=== PATIENT | male | born 1965 | race Hispanic/Latino ===

== ENCOUNTER → 2020-04-18 | Outpatient (CLI) | payer BC ==
[~2020-04-18] MED LIST: ALLO100T PO; AMLO1CAP14 PO; IOHEXOL-350 50ML VIAL IV ONE; ROSU5TAB12 PO
== END | disposition home or self-care (01) ==
LOC: RAH 13:48
PROVIDERS: ATTEND Family Medicine
DX: R91.1 Solitary pulmonary nodule (principal); J18.9 Pneumonia, unspecified organism; R50.9 Fever, unspecified
CPT/HCPCS: 71260; Q9967

== ENCOUNTER 2020-04-21 14:16 | Inpatient (IN) | payer BC ==
[~2020-04-21] VITALS: Ht 180.3 cm; Wt 93.9 kg
[2020-04-21] MEDS ORDERED: CEFTRIAXONE SODIUM 1 GM ONE (16:26)
[2020-04-21] MEDS ORDERED: AZITHROMYCIN 500MG+NS 250ML 250 ML IV ONE (16:26)
[2020-04-21] MEDS ORDERED: DEXAMETHASONE SOD PHOSPHATE 10MG/ML 1ML VIAL IV SCH (17:27)
[2020-04-21] MEDS ORDERED: SODIUM CHLORIDE 0.9% 10 ML VIAL IVP PRN (17:30)
[2020-04-21] MEDS ORDERED: GLUCAGON 1MG KIT 1 MG ML IM PRN (17:30)
[2020-04-21] MEDS ORDERED: DEXTROSE 50%-WATER 50 ML DISP.SYRIN IV PRN (17:30)
[2020-04-21] MEDS ORDERED: ACETAMINOPHEN 325 MG TAB PO PRN (17:30)
[2020-04-21] MEDS ORDERED: PHARMACY COMMUNICATION MISC SCH (17:30)
[2020-04-21] MEDS ORDERED: ADENOSINE 3 MG/ML 2ML VIAL IV ONE (18:58)
[2020-04-21] MEDS ORDERED: ACETAMINOPHEN 325 MG TAB ONE (20:45)
[2020-04-21] MEDS ORDERED: DEXAMETHASONE SOD PHOSPHATE 10MG/ML 1ML VIAL ONE (20:46)
[2020-04-21] MEDS: INSULIN R PO SS1 SQ SCH (21:00)
[2020-04-22 04:55] LABS: BASOPHILS % (AUTO) 0.4 % (0.0-5.0); EOSINOPHILS % (AUTO) 0.4 % (0.0-8.0); HEMATOCRIT 42.1 % (42-54); LYMPHOCYTES % (AUTO) 15.4 % (21.0-51.0); MEAN CORPUSCULAR HEMOGLOBIN 29.7 pg (27.0-33.0); MEAN CORPUSCULAR HGB CONC 33.7 g/dL (32.0-36.0); MEAN CORPUSCULAR VOLUME 88.1 fL (79-99); MONOCYTES % (AUTO) 1.6 % (3.0-13.0); NEUTROPHILS % (AUTO) 81.4 % (40.0-77.0); PLATELET COUNT (AUTO) 500 K/uL (130-400); RED BLOOD CELL COUNT(AUTO) 4.78 MIL/uL (4.50-6.20); RED CELL DISTRIBUTION WIDTH 12.5 % (11.0-15.5); WHITE BLOOD COUNT (AUTO) 7.9 K/uL (4.8-10.8)
[2020-04-22 05:09] LABS: CREATININE 0.9 mg/dL (0.5-1.5)
[2020-04-22 05:11] LABS: INR 1.11 (0.85-1.15); PROTHROMBIN TIME 11.8 SEC (9.6-11.6)
[2020-04-22 05:13] LABS: PARTIAL THROMBOPLASTIN TIME 30.5 SEC (26.3-35.5)
[2020-04-22 05:19] LABS: ALBUMIN 2.9 g/dL (3.5-5.0); BILIRUBIN,TOTAL 0.7 mg/dL (0.2-1.0); TOTAL PROTEIN, SERUM 8.4 g/dL (6.0-8.3)
[2020-04-22] MEDS ORDERED: DOXYCYCLINE 100MG+NS 250ML IV SCH (07:15)
[2020-04-22] MEDS ORDERED: ONDANSETRON HCL 4 MG/2 ML VIAL IVP PRN (07:15)
[2020-04-22] MEDS ORDERED: ERGOCALCIFEROL (VITAMIN D2) 50,000 UNIT CAPSULE PO SCH (07:15)
[2020-04-22] MEDS: INSULIN R PO SS1 SQ SCH ×4 (07:30→21:00)
[2020-04-22] MEDS ORDERED: ENOXAPARIN SODIUM 100 MG/1 ML SQ ONE ×2 (08:56→20:39)
[2020-04-22] MEDS ORDERED: DEXAMETHASONE SOD PHOSPHATE 10MG/ML 1ML VIAL ONE (08:57)
[2020-04-22] MEDS ORDERED: ASPIRIN 81MG TAB.CHEW ONE ×2 (08:57→09:00)
[2020-04-22] MEDS ORDERED: FAMOTIDINE 20MG TAB 20 MG TAB ONE ×2 (08:58→20:40)
[2020-04-22] MEDS ORDERED: ERGOCALCIFEROL (VITAMIN D2) 50,000 UNIT CAPSULE ONE (08:58)
[2020-04-22] MEDS ORDERED: ASCORBIC ACID 500 MG TAB ONE (08:58)
[2020-04-22] MEDS ORDERED: DOXYCYCLINE 100MG+NS 250ML 250 ML IV ONE (08:59)
[2020-04-22] MEDS ORDERED: ZINC SULFATE 220 CAPSULE ONE (08:59)
[2020-04-22] MEDS ORDERED: ENOXAPARIN SODIUM 1 MG/KG SQ SCH (09:00)
[2020-04-22] MEDS: ASCORBIC ACID 500 MG TAB PO SCH (09:00)
[2020-04-22] MEDS: FAMOTIDINE 20MG TAB 20 MG TAB PO SCH ×2 (09:00→21:00)
[2020-04-22] MEDS: ZINC SULFATE 220 CAPSULE PO SCH (09:00)
[2020-04-22] MEDS: ENOXAPARIN SODIUM 100 MG/1 ML SQ SCH ×2 (09:00→21:00)
[2020-04-22] MEDS: ASPIRIN 81MG TAB.CHEW PO SCH (09:00)
[2020-04-22 11:09] LABS: ABG BASE EXCESS 0.1 mmol/L (-2.0-3.0); ABG HCO3 24.8 mmol/L (21.0-28.0); ABG OXYGEN SATURATION 93.2 % (95.0-99.0); ABG PCO2 41 mmHg (35-48)
[2020-04-22] MEDS ORDERED: CEFTRIAXONE SODIUM 1 GM IVP SCH (16:00)
[2020-04-22] MEDS ORDERED: VANCOMYCIN PROTOCOL PER PHARMACY IV SCH (17:00)
[2020-04-22] MEDS: ZOSYN 3.375GM+NS 50ML 50 ML IV SCH (17:00)
[2020-04-22] MEDS ORDERED: COMPOUND IV REFRIGERATED 1 EACH IVSOLN MISC PRN (17:45)
[2020-04-22] MEDS ORDERED: CEFTRIAXONE SODIUM 1 GM ONE (17:46)
[2020-04-22] MEDS ORDERED: SODIUM CHLORIDE 0.9% 50 ML IV ONE (17:47)
[2020-04-22] MEDS ORDERED: ZOSYN 3.375GM+NS 50ML 50 ML IV ONE (18:45)
[2020-04-22] MEDS: VANCOMYCIN 1.5 GM in SODIUM CHLORIDE 0.9% 250 ML IV SCH (20:00)
[2020-04-22] MEDS ORDERED: LEVOFLOXACIN 750 MG/D5W 150 ML 150 ML ONE (20:40)
[2020-04-23] MEDS: ZOSYN 3.375GM+NS 50ML 50 ML IV SCH ×3 (01:00→17:00)
[2020-04-23] MEDS ORDERED: ZOSYN 3.375GM+NS 50ML 50 ML IV ONE ×3 (04:53→21:55)
[2020-04-23] MEDS: INSULIN R PO SS1 SQ SCH ×4 (07:30→21:00)
[2020-04-23] MEDS ORDERED: ASPIRIN 81MG TAB.CHEW ONE (08:30)
[2020-04-23] MEDS ORDERED: DEXAMETHASONE SOD PHOSPHATE 10MG/ML 1ML VIAL ONE (08:30)
[2020-04-23] MEDS ORDERED: ENOXAPARIN SODIUM 100 MG/1 ML SQ ONE ×2 (08:30→21:55)
[2020-04-23] MEDS ORDERED: ASCORBIC ACID 500 MG TAB ONE (08:31)
[2020-04-23] MEDS ORDERED: FAMOTIDINE 20MG TAB 20 MG TAB ONE ×2 (08:31→21:55)
[2020-04-23] MEDS ORDERED: ZINC SULFATE 220 CAPSULE ONE (08:31)
[2020-04-23] MEDS: ASPIRIN 81MG TAB.CHEW PO SCH (09:00)
[2020-04-23] MEDS: FAMOTIDINE 20MG TAB 20 MG TAB PO SCH ×2 (09:00→21:00)
[2020-04-23] MEDS: LEVOFLOXACIN 750 MG/D5W 150 ML 150 ML IV SCH (09:00)
[2020-04-23] MEDS: ENOXAPARIN SODIUM 100 MG/1 ML SQ SCH ×2 (09:00→21:00)
[2020-04-23] MEDS: ASCORBIC ACID 500 MG TAB PO SCH (09:00)
[2020-04-23] MEDS: VANCOMYCIN 1.5 GM in SODIUM CHLORIDE 0.9% 250 ML IV SCH ×2 (09:00→21:00)
[2020-04-23] MEDS: ZINC SULFATE 220 CAPSULE PO SCH (09:00)
[2020-04-23] MEDS ORDERED: ALLO100T PO (15:00)
[2020-04-23] MEDS ORDERED: AMLO1CAP14 PO (15:00)
[2020-04-23] MEDS ORDERED: ROSU5TAB12 PO (15:00)
[2020-04-23] MEDS ORDERED: IOHEXOL 350 MG/ML 100ML INFUS..BTL IV ONE (15:28)
[2020-04-23] MEDS ORDERED: LEVOFLOXACIN 750 MG/D5W 150 ML 150 ML ONE (17:49)
[2020-04-24] MEDS: ZOSYN 3.375GM+NS 50ML 50 ML IV SCH ×2 (01:00→08:02)
[2020-04-24 03:30] VITALS: BP 147/74
[2020-04-24 05:46] LABS: BASOPHILS % (AUTO) 0.2 % (0.0-5.0); EOSINOPHILS % (AUTO) 0.1 % (0.0-8.0); HEMATOCRIT 37.6 % (42-54); LYMPHOCYTES % (AUTO) 12.7 % (21.0-51.0); MEAN CORPUSCULAR HEMOGLOBIN 29.7 pg (27.0-33.0); MEAN CORPUSCULAR HGB CONC 34.3 g/dL (32.0-36.0); MEAN CORPUSCULAR VOLUME 86.6 fL (79-99); MONOCYTES % (AUTO) 8.6 % (3.0-13.0); NEUTROPHILS % (AUTO) 77.6 % (40.0-77.0); PLATELET COUNT (AUTO) 525 K/uL (130-400); RED BLOOD CELL COUNT(AUTO) 4.34 MIL/uL (4.50-6.20); RED CELL DISTRIBUTION WIDTH 12.5 % (11.0-15.5); WHITE BLOOD COUNT (AUTO) 16.4 K/uL (4.8-10.8)
[2020-04-24 06:32] LABS: ALANINE AMINOTRANSFERASE 16 U/L (12-78); ALBUMIN 2.4 g/dL (3.5-5.0); ASPARTATE AMINOTRANSFERASE 12 U/L (10-37); BILIRUBIN,TOTAL 0.4 mg/dL (0.2-1.0); CARBON DIOXIDE 25 mmol/L (21-32); CHLORIDE 103 mmol/L (101-111); CREATININE 0.9 mg/dL (0.5-1.5); GLOMERULAR FILTR. RATE CALC 93 mL/min (>60); GLUCOSE,RANDOM 129 mg/dL (70-105); POTASSIUM 3.9 mmol/L (3.5-5.1); SODIUM SERUM 139 mmol/L (136-145); TOTAL PROTEIN, SERUM 6.7 g/dL (6.0-8.3); UREA NITROGEN, BLOOD 17 mg/dL (7-18)
[2020-04-24] MEDS: INSULIN R PO SS1 SQ SCH ×3 (07:30→16:14)
[2020-04-24] MEDS: ASCORBIC ACID 500 MG TAB PO SCH (08:03)
[2020-04-24] MEDS: ENOXAPARIN SODIUM 100 MG/1 ML SQ SCH (08:03)
[2020-04-24] MEDS: ZINC SULFATE 220 CAPSULE PO SCH (08:03)
[2020-04-24] MEDS: ASPIRIN 81MG TAB.CHEW PO SCH (08:03)
[2020-04-24] MEDS: FAMOTIDINE 20MG TAB 20 MG TAB PO SCH (08:03)
[2020-04-24 09:15] VITALS: BP 121/68
[2020-04-24] MEDS: LEVOFLOXACIN 750 MG/D5W 150 ML 150 ML IV SCH (10:20)
[2020-04-24] MEDS: VANCOMYCIN 1.5 GM in SODIUM CHLORIDE 0.9% 250 ML IV SCH (12:00)
[2020-04-24 12:41] VITALS: BP 128/90
[2020-04-24 16:30] VITALS: BP 142/96
[2020-04-24] MEDS ORDERED: DOXY100C2 PO (16:46)
[2020-04-24] MEDS ORDERED: BENZ-17 PO (16:46)
[2020-04-24] MEDS ORDERED: DEXA6TAB7 PO (16:46)
[2020-04-24] MEDS ORDERED: ASPI-1005 PO (16:46)
== END 2020-04-24 17:42 | disposition home or self-care (01) | DRG 177 ==
LOC: EDH 14:16 → EDHIP 14:17 → OBSVTOIN 14:17 → 2DH 04-24 03:09
PROVIDERS: ADMIT Internal Medicine; ATTEND Internal Medicine
DX: U07.1 COVID-19 (principal); J18.1 Lobar pneumonia, unspecified organism; I10 Essential (primary) hypertension; M10.9 Gout, unspecified; E78.5 Hyperlipidemia, unspecified; Z90.49 Acquired absence of other specified parts of digestive tract; Z79.899 Other long term (current) drug therapy; Z88.8 Allergy status to other drugs, medicaments and biological substances
CPT/HCPCS: 36415; 36600; 71045; 71260; 71275; 80053; 80202; 82803; 82948; 84145; 85025; 85378; 85610; 85730; 86701; 86850; 86900; 86901; 87040; 87390; 87426; G0378; J0153; J0456; J0696; J1100; J1650; J1956; J2543; J3370; J3490; J7050; Q9967

== ENCOUNTER → 2022-05-16 | Outpatient (CLI) | payer OTHER ==
[~2022-05-16] MED LIST changes: -AMLO1CAP14 PO; +AMLO1CAP87 PO; +ASPI-1005 PO; +BENZ-17 PO; +DEXA6TAB7 PO; +DOXY100C5 PO; -IOHEXOL-350 50ML VIAL IV ONE
== END | disposition home or self-care (01) ==
LOC: RAH 13:28
PROVIDERS: ATTEND Internal Medicine Cardiovascular Disease
DX: Z13.6 Encounter for screening for cardiovascular disorders (principal); R93.1 Abnormal findings on diagnostic imaging of heart and coronary circulation
CPT/HCPCS: 75571